=== PATIENT | female | born 1985 | race Caucasian/White ===

== ENCOUNTER 2016-10-14 22:44 | Emergency (ER) | payer SELFPAY ==
[~2016-10-14] VITALS: Ht 149.9 cm; Wt 52.0 kg
[~2016-10-14 22:44] MED LIST: BUSPAR5 M1 PO; CIPRO500 MG OR; CIPROFLOXACN500 MG PO; DAYQUIL OR; DEPO-MEDROL80 MG/ML IM; FLEXERIL OR; FLEXERIL5 M1 PO; LORTAB5 PO; NAPROSYN500 MG PO; NO; NO HOME MEDS; PRILOSEC20 MG/CAP PO; ROBITUSS12 OR; SILVADENE1 % EX; TORADOL OR; TRAMADOL HCL50 MG PO; TYLENOL PM OR; ULTRAM50 MG OR
[2016-10-15 00:21] LABS: HEMATOCRIT 33.8 % (37.0-47.0); HEMOGLOBIN 11.5 g/dl (12.0-16.0); IMMATURE GRANULOCYTES 0.6 % (0.0-1.0); MEAN CELL VOLUME 89.4 fL CALC (80.0-100.0); MEAN CORPUSCULAR HGB 30.4 pG CALC (26.0-32.0); NEUT# 8.93 thou/uL (2.00-7.15); RED BLOOD COUNT 3.78 mill/uL (4.20-5.60); RED CELL DISTRI WIDTH 13.2 % (11.5-15.5)
[2016-10-15 00:22] LABS: URINE BILIRUBIN - DIPSTICK NEGATIVE (NEGATIVE); URINE BLOOD DIPSTICK TRACE-INTACT (NEGATIVE); URINE CLARITY SLIGHT CLOUDY; URINE COLOR YELLOW; URINE GLUCOSE - DIPSTICK NEGATIVE (NEGATIVE); URINE KETONE NEGATIVE (NEGATIVE); URINE LEUK ESTERASE NEGATIVE (NEGATIVE); URINE NITRITE - DIPSTICK NEGATIVE (Negative); URINE PROTEIN - DIPSTICK NEGATIVE (NEG-TRACE); URINE UROBILINOGEN - DIPSTICK 0.2 E.U./dL (0.2)
[2016-10-15 00:33] LABS: ALBUMIN 3.9 g/dL (3.2-5.0); ALKALINE PHOSPHATASE 62 u/l (38-126); AMYLASE < 30 u/l (30-110); ANION GAP 14 (6-22 (CALC)); BILIRUBIN, TOTAL 0.3 mg/dL (0.0-1.4); BUN 6 mg/dL (7-17); BUN/CREATININE RATIO 10 (12-20 (CALC)); CALCIUM 9.3 mg/dL (8.4-10.2); CARBON DIOXIDE 25 mmol/l (22-30); CHLORIDE 105 mmol/l (95-108); CREATININE 0.7 mg/dL (0.5-1.0); GFR > 60 ML/MIN (>=60 (CALC)); GFR FOR AFR.AMER. > 60 ML/MIN (>=60 (CALC)); GLUCOSE 105 mg/dL (65-105); LIPASE 34 u/l (23-300); POTASSIUM 3.5 mmol/l (3.5-5.1); SGOT/AST 17 u/l (14-36); SGPT/ALT 25 u/l (9-52); SODIUM 140 mmol/l (137-146); TOTAL PROTEIN 6.8 g/dL (6.3-8.2)
[2016-10-15] MEDS ORDERED: AMOXICILLIN500 M2 PO (01:00)
[2016-10-15 01:26] VITALS: BP 104/62
== END 2016-10-15 01:26 | disposition home or self-care (01) | DRG 153 ==
LOC: ED 22:44
PROVIDERS: Emergency Medicine
DX: J02.0 Streptococcal pharyngitis (principal); R10.30 Lower abdominal pain, unspecified

== ENCOUNTER 2017-03-05 10:18 | Emergency (ER) | payer OTHER ==
[~2017-03-05] VITALS: Ht 149.9 cm; Wt 55.0 kg
[~2017-03-05 10:18] MED LIST changes: +AMOXICILLIN500 M2 PO
[2017-03-05 11:49] LABS: URINE BILIRUBIN - DIPSTICK NEGATIVE (NEGATIVE); URINE BLOOD DIPSTICK NEGATIVE (NEGATIVE); URINE CLARITY CLEAR; URINE COLOR YELLOW; URINE GLUCOSE - DIPSTICK NEGATIVE (NEGATIVE); URINE KETONE NEGATIVE (NEGATIVE); URINE LEUK ESTERASE NEGATIVE (NEGATIVE); URINE NITRITE - DIPSTICK NEGATIVE (Negative); URINE PROTEIN - DIPSTICK NEGATIVE (NEG-TRACE); URINE SPECIFIC GRAVITY <=1.005; URINE UROBILINOGEN - DIPSTICK 0.2 E.U./dL (0.2)
[2017-03-05 12:00] VITALS: BP 119/66
== END 2017-03-05 12:00 | disposition home or self-care (01) | DRG 914 ==
LOC: ED 10:18
PROVIDERS: Emergency Medicine
DX: S39.81XA Other specified injuries of abdomen, initial encounter (principal); W22.8XXA Striking against or struck by other objects, initial encounter; Y93.F9 Activity, other caregiving; Y92.210 Daycare center as the place of occurrence of the external cause

== ENCOUNTER 2017-06-09 13:06 | Emergency (ER) | payer OTHER ==
[~2017-06-09] VITALS: Ht 149.9 cm; Wt 54.0 kg
[2017-06-09] MEDS ORDERED: ULTRAM50 MG PO (13:14)
[2017-06-09 13:45] VITALS: BP 107/65
== END 2017-06-09 13:51 | disposition home or self-care (01) | DRG 125 ==
LOC: ED 13:06
DX: S00.11XA Contusion of right eyelid and periocular area, initial encounter (principal); R51 Headache; W22.8XXA Striking against or struck by other objects, initial encounter; Y93.89 Activity, other specified; Y92.210 Daycare center as the place of occurrence of the external cause

== ENCOUNTER 2017-08-09 15:45 | Emergency (ER) | payer SELFPAY ==
[~2017-08-09] VITALS: Ht 149.9 cm; Wt 55.2 kg
[~2017-08-09 15:45] MED LIST changes: +ULTRAM50 MG PO
[2017-08-09 17:49] LABS: HEMATOCRIT 38.8 % (37.0-47.0); HEMOGLOBIN 12.9 g/dl (12.0-16.0); IMMATURE GRANULOCYTES 0.3 % (0.0-1.0); MEAN CELL VOLUME 93.9 fL CALC (80.0-100.0); MEAN CORPUSCULAR HGB 31.2 pG CALC (26.0-32.0); MEAN CORPUSCULAR HGB CONC 33.2 g/L CALC (32.0-36.0); NEUT# 3.91 thou/uL (2.00-7.15); RED BLOOD COUNT 4.13 mill/uL (4.20-5.60); RED CELL DISTRI WIDTH 12.9 % (11.5-15.5)
[2017-08-09 17:50] LABS: URINE BILIRUBIN - DIPSTICK NEGATIVE (NEGATIVE); URINE BLOOD DIPSTICK LARGE (NEGATIVE); URINE CLARITY CLEAR; URINE COLOR YELLOW; URINE GLUCOSE - DIPSTICK NEGATIVE (NEGATIVE); URINE KETONE NEGATIVE (NEGATIVE); URINE LEUK ESTERASE NEGATIVE (NEGATIVE); URINE NITRITE - DIPSTICK NEGATIVE (Negative); URINE PROTEIN - DIPSTICK NEGATIVE (NEG-TRACE); URINE SPECIFIC GRAVITY >=1.030; URINE UROBILINOGEN - DIPSTICK 0.2 E.U./dL (0.2)
[2017-08-09 17:57] LABS: URINE CALCIUM OXALATE CRYSTALS MODERATE lpf; URINE SQUAMOUS EPITHELIAL CELL FEW EPI/hpf (0-FEW); URINE WBC 0-2 WBC/hpf (0-5)
[2017-08-09 18:02] LABS: ALBUMIN 4.3 g/dL (3.2-5.0); ALKALINE PHOSPHATASE 56 u/l (38-126); ANION GAP 14 (6-22 (CALC)); BILIRUBIN, TOTAL 0.3 mg/dL (0.0-1.4); BUN 7 mg/dL (7-17); BUN/CREATININE RATIO 12 (12-20 (CALC)); CALCIUM 9.5 mg/dL (8.4-10.2); CARBON DIOXIDE 24 mmol/l (22-30); CHLORIDE 106 mmol/l (95-108); CREATININE 0.6 mg/dL (0.5-1.0); GFR > 60 ML/MIN (>=60 (CALC)); GFR FOR AFR.AMER. > 60 ML/MIN (>=60 (CALC)); GLUCOSE 87 mg/dL (65-105); POTASSIUM 3.8 mmol/l (3.5-5.1); SGOT/AST 23 u/l (14-36); SGPT/ALT 25 u/l (9-52); SODIUM 141 mmol/l (137-146); TOTAL PROTEIN 7.1 g/dL (6.3-8.2)
[2017-08-09 18:18] LABS: BETA-HCG, QUANT(RESULT NUMBER) 11234 mIU/mL
[2017-08-09 18:42] VITALS: BP 112/58
== END 2017-08-09 18:54 | disposition home or self-care (01) | DRG 778 ==
LOC: ED 15:45
PROVIDERS: Emergency Medicine
DX: O20.0 Threatened abortion (principal); Z3A.01 Less than 8 weeks gestation of pregnancy

== ENCOUNTER 2017-08-12 18:02 | Emergency (ER) | payer OTHER ==
[~2017-08-12] VITALS: Ht 149.9 cm; Wt 60.0 kg
[2017-08-12 19:36] LABS: URINE BILIRUBIN - DIPSTICK NEGATIVE (NEGATIVE); URINE BLOOD DIPSTICK LARGE (NEGATIVE); URINE COLOR YELLOW; URINE GLUCOSE - DIPSTICK NEGATIVE (NEGATIVE); URINE KETONE NEGATIVE (NEGATIVE); URINE LEUK ESTERASE NEGATIVE (NEGATIVE); URINE NITRITE - DIPSTICK NEGATIVE (Negative); URINE PROTEIN - DIPSTICK NEGATIVE (NEG-TRACE); URINE UROBILINOGEN - DIPSTICK 0.2 E.U./dL (0.2)
[2017-08-12 19:37] LABS: HEMATOCRIT 39.9 % (37.0-47.0); HEMOGLOBIN 13.4 g/dl (12.0-16.0); IMMATURE GRANULOCYTES 0.4 % (0.0-1.0); MEAN CELL VOLUME 91.5 fL CALC (80.0-100.0); MEAN CORPUSCULAR HGB 30.7 pG CALC (26.0-32.0); MEAN CORPUSCULAR HGB CONC 33.6 g/L CALC (32.0-36.0); NEUT# 7.57 thou/uL (2.00-7.15); RED BLOOD COUNT 4.36 mill/uL (4.20-5.60); RED CELL DISTRI WIDTH 12.7 % (11.5-15.5)
[2017-08-12 19:39] LABS: URINE CLARITY CLEAR
[2017-08-12 19:44] LABS: URINE SQUAMOUS EPITHELIAL CELL FEW EPI/hpf (0-FEW); URINE WBC 0-2 WBC/hpf (0-5)
[2017-08-12 19:49] LABS: ALBUMIN 4.6 g/dL (3.2-5.0); ALKALINE PHOSPHATASE 61 u/l (38-126); ANION GAP 18 (6-22 (CALC)); BILIRUBIN, TOTAL 0.3 mg/dL (0.0-1.4); BUN 9 mg/dL (7-17); BUN/CREATININE RATIO 14 (12-20 (CALC)); CARBON DIOXIDE 26 mmol/l (22-30); CHLORIDE 102 mmol/l (95-108); CREATININE 0.7 mg/dL (0.5-1.0); GFR > 60 ML/MIN (>=60 (CALC)); GFR FOR AFR.AMER. > 60 ML/MIN (>=60 (CALC)); POTASSIUM 3.6 mmol/l (3.5-5.1); SGOT/AST 23 u/l (14-36); SGPT/ALT 20 u/l (9-52); SODIUM 143 mmol/l (137-146); TOTAL PROTEIN 7.4 g/dL (6.3-8.2)
[2017-08-12 20:05] LABS: BETA-HCG, QUANT(RESULT NUMBER) 7122 mIU/mL
[2017-08-12 20:51] VITALS: BP 132/74
== END 2017-08-12 20:19 | disposition home or self-care (01) | DRG 779 ==
LOC: ED 18:02
PROVIDERS: Emergency Medicine
DX: O03.9 Complete or unspecified spontaneous abortion without complication (principal)

== ENCOUNTER 2018-01-18 19:08 | Emergency (ER) | payer MEDICAID ==
[~2018-01-18] VITALS: Ht 149.9 cm; Wt 55.0 kg
[2018-01-18] MEDS ORDERED: AMOXICILLIN500 M2 (19:20)
[2018-01-18 20:16] LABS: URINE BILIRUBIN - DIPSTICK NEGATIVE (NEGATIVE); URINE BLOOD DIPSTICK MODERATE (NEGATIVE); URINE COLOR YELLOW; URINE GLUCOSE - DIPSTICK NEGATIVE (NEGATIVE); URINE KETONE NEGATIVE (NEGATIVE); URINE LEUK ESTERASE TRACE (NEGATIVE); URINE NITRITE - DIPSTICK NEGATIVE (Negative); URINE PROTEIN - DIPSTICK TRACE mg/dL (NEG-TRACE); URINE SPECIFIC GRAVITY 1.025; URINE UROBILINOGEN - DIPSTICK 0.2 E.U./dL (0.2)
[2018-01-18 20:20] LABS: URINE CLARITY HAZY
[2018-01-18 20:29] LABS: INFLUENZA A NONE DETECTED (NONE DETECT); INFLUENZA B NONE DETECTED (NONE DETECT)
[2018-01-18 20:30] LABS: URINE MUCUS MANY hpf (NONE-FEW); URINE SQUAMOUS EPITHELIAL CELL MODERATE EPI/hpf (0-FEW)
[2018-01-18] MEDS ORDERED: PYRIDIUM200 MG PO (20:51)
[2018-01-18] MEDS ORDERED: CIPROFLOXACN500 MG PO (20:51)
[2018-01-18 21:24] VITALS: BP 115/71
== END 2018-01-18 21:24 | disposition home or self-care (01) ==
LOC: ED 19:08
DX: B34.9 Viral infection, unspecified (principal); N39.0 Urinary tract infection, site not specified; R50.9 Fever, unspecified; J02.9 Acute pharyngitis, unspecified; R30.0 Dysuria

== ENCOUNTER 2021-03-03 16:06 | Emergency (ER) | payer OTHER ==
[~2021-03-03] VITALS: Ht 149.9 cm; Wt 63.5 kg
[~2021-03-03 16:06] MED LIST changes: +AMOXICILLIN500 M2; +CYCLOBENZAPR5 MG PO; +PYRIDIUM200 MG PO
[2021-03-03 18:02] LABS: URINE BILIRUBIN - DIPSTICK NEGATIVE (NEGATIVE); URINE BLOOD DIPSTICK SMALL (NEGATIVE); URINE COLOR YELLOW; URINE GLUCOSE - DIPSTICK NEGATIVE (NEGATIVE); URINE KETONE NEGATIVE (NEGATIVE); URINE LEUK ESTERASE NEGATIVE (NEGATIVE); URINE PH 6.5 (4.5-8.0); URINE PROTEIN - DIPSTICK NEGATIVE (NEG-TRACE); URINE SPECIFIC GRAVITY >=1.030; URINE UROBILINOGEN - DIPSTICK 0.2 E.U./dL (0.2)
[2021-03-03 18:04] LABS: URINE NITRITE - DIPSTICK NEGATIVE (Negative)
[2021-03-03 18:19] LABS: URINE SQUAMOUS EPITHELIAL CELL FEW EPI/hpf (0-FEW); URINE WBC 0-2 WBC/hpf (0-5)
[2021-03-03] MEDS ORDERED: ULTRAM50 MG PO (18:25)
[2021-03-03] MEDS ORDERED: BACTRIM DS1 TAB PO (18:25)
[2021-03-03 19:17] VITALS: BP 138/68
== END 2021-03-03 19:25 | disposition home or self-care (01) | DRG 178 ==
LOC: ED 16:06
DX: U07.1 COVID-19 (principal); N39.0 Urinary tract infection, site not specified

== ENCOUNTER 2024-02-02 19:52 | Emergency (ER) | payer SELFPAY ==
[2024-02-02] VITALS (7 sets, daily range): BP systolic 103–124; BP diastolic 53–71
[~2024-02-02] VITALS: Ht 149.9 cm; Wt 56.0 kg
[~2024-02-02 19:52] MED LIST changes: +BACTRIM DS1 TAB PO; +PROTONIX40 M2 PO
[2024-02-02] MEDS ORDERED: IBUPROFEN 800 MG/TAB PO ONE (23:00)
[2024-02-03 00:59] VITALS: BP 108/71
== END 2024-02-03 01:00 | DRG 310 ==
LOC: ED 19:52
DX: R00.0 Tachycardia, unspecified (principal); R52 Pain, unspecified; R05.9 Cough, unspecified; F41.9 Anxiety disorder, unspecified; Z20.822 Contact with and (suspected) exposure to COVID-19